=== PATIENT | female | born 1960 | race Caucasian/White ===

== ENCOUNTER 2023-11-14 13:38 | Emergency (ER) | payer MEDICARE, SELFPAY ==
[2023-11-14 13:41] VITALS: BP 129/84
--- NOTE | 2023-11-14 14:57 | ED.GENMED ---
History of Present Illness
General
Chief Complaint: Head Injury
Source: patient
Exam Limitations: none
Time Seen by Provider: 11/14/23 14:27
Nursing documentation reviewed up to this point in time: agreed with
Travel History
Have you had any contact with someone who has COVID-19?: No
Do you have any symptoms of coronavirus? Fever > 100 degrees, chills, cough, shortness of breath, sore throat, loss of taste or smell, muscle aches, or headache?: No
History of Present Illness
History of Present Illness:
pt is a 63 y/o F with h/o htn, anemia, anxiety, MVP
here with right sided scalp laceration and headache after mechanical fall around 11 am today
pt was geocaching and leaning over to pick something up and lost her footing causing her to fall into a cra[place]
she hit her head on something, but isn't sure what
she isn't sure her tetanus shot
no thinners
she has a headache and mild nauesa and feels a little disoriented
she has not had any neck pain, vomiting, cp, sob, hip pain
pt was able to get up after the fall.
Past History
Past History
ED Past Medical History: HTN and Other (mvp, anemia, anxiety)
ED Past Surgical History: Urological
Social History
Tobacco: Non-smoker
Alcohol: None
Drug: None
Personal: Single
Living: alone
Review of Systems
Review of Systems
Allergies reviewed?: Yes
All Other Systems: Not applicable
Phy Exam
Physical Exam
Physical Exam:
GENERAL: Alert , in no apparent distress
HEAD: R scalp hematoma. large approx 6 cm with laceration
tender
NECK: no midline tenderness, painful extension but no midline tendneress, rotation normal no paraspinal muscle tenderness;
EYE: pupils equal and reactive, EOMs intact.
ENT: o/p clr, mmm. no hemotympanum
CARDIAC: Regular rate and rhythm, no edema
LUNGS: Clear breath sounds bilaterally, no acute respiratory distress, no wheezes/rales/rhonchi
ABDOMEN: Soft, without focal tenderness, no r/g, no cvat
NEUROLOGICAL: Alert and oriented, no focal neuro deficits, CN intact, 5/5 strength, sensation intact
SKIN: Warm and dry,
irregular 2.5 cm laceration right scalp with large hematoma right parietal region
MUSCULOSKELETAL: No edema, well perfused.
PSYCH: Normal and appropriate interaction.
Course
Orders/Labs/Results
Orders:
Orders
11/14/23 14:45
CT Cervical Spine W/o Iv Contr Urgent
Comment:
Reason For Exam: fall, dec neck rom
CT Head W/o Iv Contrast Urgent
Comment:
Reason For Exam: headache after fall
Acetaminophen [Tylenol] 650 mg PO NOW STA
Ondansetron Orally Disint [Zofran Odt (Orally Disintegrating)] 4 mg PO NOW STA
Tetanus/Diphth/Acelpertussis [Adacel] 0.5 ml IM .ONCE ONE
Vital Signs
Initial and Last Documented VS:
Initial Vital Signs
Temp Pulse Resp BP Pulse Ox
98.2 F 76 18 129/84 96
11/14/23 13:41 11/14/23 13:41 11/14/23 13:41 11/14/23 13:41 11/14/23 13:41
Last Documented Vital Signs
Temp Pulse Resp BP Pulse Ox
98.2 F 71 18 154/71 99
11/14/23 13:41 11/14/23 16:50 11/14/23 16:50 11/14/23 16:50 11/14/23 16:50
Procedures
Laceration Closure
Right Scalp:
Status of Wound: clean
Description of Wound Edges: ragged
Preparation: cleaned with saline
Anesthesia: 1% Lidocaine with epi
Revision/Debridement: routine- no revision
Skin Closure Material: skin maria r
Number of sutures: 3
MDM/Problems Addressed
Differential Diagnosis Includes:
hematoma, laceration, concussion, SDH
MDM/Problems Addressed:
63 y/o F with h/o htn
homelessness, lives in her car
here after mechanical fall in the [place] when she was reaching for something, struck her head on a rock or something in the [place], no LOC
no thinners
has a large hematoma and a scalp laceration
no focal neuro findings
but slightly'off' and has headahce, nausea
likely concussion
head ct neg
cervical spine ct neg
wound irrigated and closed with maria r
staple removal 5-7 days
return or see pcp
concussive instructions given.
*Critical Care Note
Total Time (30-74mins, 75-104mins- exclusive of procedures): Not Applicable
ED Attending Note
-
Portions of this chart may have been created with voice recognition software.� Occasional wrong word or��sound alike� substitutions may have occurred due to the inherent limitations of voice recognition software.
Discharge Plan
Departure
Patient Disposition: Home (Routine Discharge)
Date of Disposition: 11/14/23
Time of Disposition: 16:41
Patient with high blood pressure during this ER visit?: No
Discharge Problem:
Concussion, Scalp laceration
Instructions: Concussion, Adult (DC), Laceration Repair With [facility] (DC)
Referrals:
Amor Diaz MD [Family Provider] - Follow up in 2-3 days
Activity Restrictions/Additional Instructions:
Elia may have a mild concussion
for this we recommend 48 hours of brain rest to help your brain heal and your headache improve.
also use tylenol every 6 hours
for your neck, heat off and on as needed.
after 48 hours
if you are getting headaches, you may need to be sent home. if you are still having headaches all week, you need to see a specialist before returning to gym or sports.
otherwise as long as you are well, you can return to gym and sports next week.
return to the er for: worsening pain, vomiting, confusion, weakness, numbness/tingling in arms or legs or any concerns.
KEEP THE WOUND CLEAN AND DRY FOR 24 HOURS
AFTER THAT YOU CAN GET IT WET IN THE BATH/SHOWER ONCE A DAY AND MAKE SURE IT IS CLEAN AND THERE IS NO DRIED BLOOD ON THE mraia r
THE MARIA R NEED TO BE REMOVED IN ABOUT 7 DAYS, SEE YOUR DOCTOR FOR THIS.
WATCH FOR SIGNS OF INFECTION AND RETURN NEEDED FOR PAIN, SWELLING, REDNESS, DRAINAGE, BLEEDING.
Interventions
Interventions:
*Risk Screen - Suicide Last Done: 11/14/23 13:45
*General Assessment Last Done: 11/14/23 16:52
*Neglect/Abuse Screening Last Done: 11/14/23 13:45
ED- Fall Risk Assessment Last Done: 11/14/23 14:13
*ED COVID-19 Vaccine History Last Done: 11/14/23 13:45
*Nursing Disposition Last Done: 11/14/23 16:52
ED- Neurological Assessment Last Done: 11/14/23 14:13
ED-Skin Assessment Last Done: 11/14/23 14:13
Discharge Date and Time
Discharge Date/Time: 11/14/23 17:12
[2023-11-14] MEDS: ZOFRAN ODT (ORALLY DISINTEGRATING) 4 MG PO (15:10)
[2023-11-14] MEDS: TYLENOL 650 MG PO (15:10)
[2023-11-14] MEDS: ADACEL 0.5 ML IM (15:11)
[2023-11-14 16:50] VITALS: BP 154/71
== END 2023-11-14 17:12 | disposition home or self-care (01) ==
LOC: EMR 13:38
PROVIDERS: EMERGENCY PHYSICIAN Emergency Medicine; FAMILY PHYSICIAN Internal Medicine
DX: S01.01XA Laceration without foreign body of scalp, initial encounter (principal); S06.0XAA Concussion with loss of consciousness status unknown, initial encounter; W19.XXXA Unspecified fall, initial encounter; I10 Essential (primary) hypertension; Z59.02 Unsheltered homelessness; Z23 Encounter for immunization
CPT/HCPCS: 99284; 12001; 90471; 70450; 72125; 90715

== ENCOUNTER 2024-11-01 21:17 | Emergency (ER) | payer OTHER, SELFPAY ==
[2024-11-01 21:40] VITALS: BP 101/63
--- NOTE | 2024-11-02 00:59 | ED.GENMED ---
History of Present Illness
General
Chief Complaint: Fall
Source: patient
Exam Limitations: none
Time Seen by Provider: 11/02/24 00:26
Nursing documentation reviewed up to this point in time: agreed with
History of Present Illness
History of Present Illness:
This is a 64-year-old woman who has history of chronic neck and back pain, chronic osteoarthritis, chronically maintained on twice daily Celebrex, Parafon forte. Follows with pain management. She also has history of hypertension, hyperlipidemia,
anxiety.
She presents after mechanical fall at home, while walking down her steps she inadvertently missed the last step and fell onto her left side. Injury occurred about 7 PM. She denies head injury, denies loss of consciousness. She takes no
anticoagulants.
She presents with complaints of pain left shoulder, left upper arm as well as left lateral chest wall. She does report prior history of left sided rib fractures number of years ago.
She denies headache, admits to mild chronic neck pain that has been stable and unchanged, no back pain, no weakness or numbness, no dizziness nor lightheadedness.
Left lateral chest pain is worse with deep breath and with movement but denies shortness of breath, no cough, no abdominal pain, no nausea nor vomiting, no diarrhea nor constipation.
Past History
Past History
ED Past Medical History: HTN, Psychiatric and Other (mvp, anemia, anxiety, chronic neck and back pain, osteoarthritis)
ED Past Surgical History: Urological
Social History
Tobacco: Non-smoker
Alcohol: None
Drug: None
Personal:
Living: alone
Employment: Disabled
Family History
Family History: Other (Noncontributory)
Phy Exam
Physical Exam
Physical Exam:
TRAUMA EXAM:
VITAL SIGNS: Vital signs reviewed, cooperative
DISTRESS: No active disease
EYES: Pupils reactive, no orbital trauma
NOSE: No deformity or epistaxis
FACE AND SCALP: No scalp or facial trauma, external canals no blood
NECK: Supple nontender
BACK: Back nontender, pelvis stable to compression
RESPIRATORY: No distress, breath sounds normal, mild tenderness to palpation left lateral chest wall. No crepitus nor palpable bony abnormality.
CARDIAC: No murmur, pulses equal and strong
ABDOMEN: Soft nontender bowel sounds normal
SKIN: Skin intact no bleeding, color normal
EXTREMITIES: No focal tenderness to the left shoulder, left upper arm but moderate pain of left shoulder with range of motion. There is no crepitus, no soft tissue swelling. No tenderness about the elbow. Mild left elbow pain with range of
motion. Peripheral pulses are full and equal bilaterally. Hand grasp are full and equal bilaterally.
NEUROLOGICAL: Alert, oriented, no motor deficits. Motor strength 5/5 bilaterally. Gross sensation is intact. Gait is steady.
PSYCH: Mood affect normal
Course
Orders/Labs/Results
Orders:
Orders
11/01/24 21:42
CR Humerus - Left Min 2 Views* Urgent
Comment:
Reason For Exam: pain after fall
CR Shoulder, Trauma - Left Urgent
Comment:
Reason For Exam: pain after fall
Ribs, Left 3 View W/PA Chest CR [CR Ribs-left 3 Vw W/pa Chest] Urgent
Comment:
Reason For Exam: pain after fall
11/02/24 00:52
Sling Left-Treatment ONCE
Ketorolac [Toradol] 60 mg IM NOW STA
Vital Signs
Initial and Last Documented VS:
Initial Vital Signs
Temp Pulse Resp Pulse Ox
98.1 F 79 16 97
11/01/24 21:39 11/01/24 21:39 11/01/24 21:39 11/01/24 21:39
Last Documented Vital Signs
Temp Pulse Resp BP Pulse Ox
98.1 F 79 16 101/63 97
11/01/24 21:39 11/01/24 21:39 11/01/24 21:39 11/01/24 21:40 11/01/24 21:39
MDM/Problems Addressed
Differential Diagnosis Includes:
Concern for left upper arm/shoulder contusion, occult fracture.
Concern for left lateral rib fracture, pneumothorax, pleural effusion, chest wall contusion.
Hemodynamically stable and overall well in appearance. Easily communicative.
No focal neurodeficits.
X-rays are unremarkable, shoulder and humerus x-rays negative for fracture. Left ribs and chest x-ray reveal an old anterior left 11th rib fracture but no convincing evidence of acute fracture. Lungs are clear. No pneumothorax nor pleural
effusion.
Patient has history of prior rib fracture on the left which I suspect is noted as old left anterior 11th rib fracture.
Will place an arm sling and given IM dose of Toradol.
Recommend supportive measures, local ice then transition to heat.
Continue current medications including Celebrex, Parafon forte.
Prompt follow-up with PCP as well as apprentice painter hand.
*Radiology
Radiology exam reviewed: radiology read reviewed
*Pulse Oximetry
Patient hypoxic: no
*Critical Care Note
Total Time (30-74mins, 75-104mins- exclusive of procedures): Not Applicable
ED Attending Note
-
Portions of this chart may have been created with voice recognition software.� Occasional wrong word or��sound alike� substitutions may have occurred due to the inherent limitations of voice recognition software.
Discharge Plan
Departure
Patient Disposition: Home (Routine Discharge)
Date of Disposition: 11/02/24
Time of Disposition: 01:00
Patient with high blood pressure during this ER visit?: No
Condition: Good
Discharge Problem:
Fall at home, Contusion of left shoulder, Contusion of left chest wall
Instructions: Contusion (DC), How to Use a Shoulder Sling ED
Referrals:
UNKNOWN - PT DOES,NOT KNOW [Family Provider] -
Activity Restrictions/Additional Instructions:
Continue current medications including Celebrex, Parafon forte.
Wear arm sling during the day, off at nighttime.
We recommend ice to left shoulder/upper arm, left lateral chest wall 4 times daily over the next 2 days, then transition to heat.
Follow-up with your primary care physician as well as apprentice painter hand for recheck/further evaluation.
Interventions
Interventions:
*Risk Screen - Suicide Last Done: 11/01/24 21:40
*General Assessment Last Done: 11/01/24 21:40
*Neglect/Abuse Screening Last Done: 11/01/24 21:40
*ED COVID-19 Vaccine History Last Done: 11/01/24 21:40
*Nursing Disposition Last Done: 11/02/24 01:24
ED-Musculoskeletal Assessment Last Done: 11/02/24 01:19
ED- Neurological Assessment Last Done: 11/02/24 01:19
Discharge Date and Time
Discharge Date/Time: 11/02/24 01:24
Print Language: AMHARIC
[2024-11-02] MEDS: TORADOL 60 MG IM (01:03)
== END 2024-11-02 01:24 | disposition home or self-care (01) ==
LOC: EMR 21:17
PROVIDERS: EMERGENCY PHYSICIAN Emergency Medicine
DX: S40.012A Contusion of left shoulder, initial encounter (principal); S20.212A Contusion of left front wall of thorax, initial encounter; W10.9XXA Fall (on) (from) unspecified stairs and steps, initial encounter; Y92.009 Unspecified place in unspecified non-institutional (private) residence as the place of occurrence of the external cause; Y93.01 Activity, walking, marching and hiking; I10 Essential (primary) hypertension; E78.00 Pure hypercholesterolemia, unspecified; F41.9 Anxiety disorder, unspecified; D64.9 Anemia, unspecified; I34.1 Nonrheumatic mitral (valve) prolapse; M19.90 Unspecified osteoarthritis, unspecified site
CPT/HCPCS: 99283; 96372; 71101; 73030; 73060